=== PATIENT | male | born 1965 | race Two or more races ===

== ENCOUNTER → 2024-05-25 | Outpatient (CLI) | payer BC, SELFPAY ==
--- NOTE | 2024-05-25 09:15 | XR_ITS ---
Examination: Sinus series 4 views TECHNIQUE: Ramon Meza lateral submentovertex sinus series 4 views Exam date and time: May 25, 2024 0935 hours INDICATIONS: Sinus congestion headache sinus pressure and pain dizziness 1 year. FINDINGS: Significant opacity in the frontal ethmoid air cells as well as maxillary antra and sphenoid sinuses No fluid levels No cortical bone destruction IMPRESSION: Significant chronic pansinusitis
== END | disposition home or self-care (01) ==
PROVIDERS: PCP Nurse Practitioner Family; Referring Provider Nurse Practitioner Family; Visit Provider Nurse Practitioner Family
DX: J32.4 Chronic pansinusitis (principal)
CPT/HCPCS: 70220

== ENCOUNTER 2024-08-02 06:50 | Day surgery (SDC) | payer BC, SELFPAY ==
[2024-08-02] VITALS (9 sets, daily range): BP systolic 127–152; BP diastolic 81–104; PULSE 59–72; RESP 12–23; TEMP 36.6–36.7; O2SAT 95–99; BMI 34.6
[2024-08-02] MEDS: SODIUM CHLORIDE 0.9% 500 ML 500 ML 125 ML IV (07:54)
[2024-08-02] MEDS: fentaNYL CIT INJ 50 mCg/ML AMP 2ML (ASD USE ONLY) IV (07:57)
[2024-08-02] MEDS: MIDAZOLAM INJ 1 MG/ML VIAL 2 ML (ASD USE ONLY) 2 MG IV (07:57)
[2024-08-02] MEDS: DiphenhydrAMINE INJ 50 MG/ML VIAL 25 MG IV (07:57)
--- NOTE | 2024-08-02 08:14 | SUR.PHASEII ---
PATIENT INTO RECOVERY WITH NO ACUTE DISTRESS NOTED, V/S STABLE, NO COMPLAINTS OF PAIN OR NAUSEA AT THIS TIME, PATIENT ACTIVELY PASSING FLATUS.
--- NOTE | 2024-08-02 09:28 | SUR.PHASEII ---
0844 SPEEDY RN CALLS PATIENT'S KENNEY TO INFORM HER THAT PATIENT IS READY FOR PHYSICAL THERAPY COORDINATOR. 0850 PATIENT OUR OF THE BATHROOM AND DRESSED TO GO HOME. PATIENT DRINKING APPLEJUICE WITH NO DIFFICULTY. 0910 SPEEDY RN CALLS PATIENT'S KENNEY AGAIN TO ENSURE SHE IS EN ROUTE TO THE FACILITY AND KENNEY INFORMS HER SHE IS ON HER WAY. 0920 D/C INSTRUCTIONS GIVEN TO PATIENT'S AND DAUGHTER BY SPEEDY NELSON/CERTIFIED TOP TAPER MACHINE. 0928 PATIENT DISCHARGED HOME IN STABLE CONDITION.
== END 2024-08-02 09:28 | disposition home or self-care (01) ==
PROVIDERS: PCP Nurse Practitioner Family; Referring Provider Surgery; Visit Provider Surgery
PROC: 0DBE8ZX Excision of Large Intestine, Via Natural or Artificial Opening Endoscopic, Diagnostic (ICD-10-PCS; CPT 45380; principal; 2024-08-02 08:00)
DX: Z12.11 Encounter for screening for malignant neoplasm of colon (principal); K56.690 Other partial intestinal obstruction; K64.1 Second degree hemorrhoids; K57.30 Diverticulosis of large intestine without perforation or abscess without bleeding; D12.0 Benign neoplasm of cecum
CPT/HCPCS: 45380; A4649; J1200; J2250; J3010; J7040

== ENCOUNTER 2024-09-02 09:01 | Emergency (ER) | payer BC, SELFPAY ==
[2024-09-02 09:02] VITALS: BMI 38.9
[2024-09-02 09:31] VITALS: BP 118/77; PULSE 91; RESP 18; TEMP 37.6; O2SAT 95
--- NOTE | 2024-09-02 10:05 | XR_ITS ---
Examination: CT brain head without contrast. 2-D sagittal coronal reconstructions Date and time of exam:August 1114 hours Comparison March 11, 2005 INDICATIONS: Headaches fever beginning 3 days ago CTDI: vol (mGy):51.5 DLP: (mGycm):996 Technique: Multiple CT axial sections of the brain have been obtained, 5 mm slice thickness. Contrast has not been administered. 2-D sagittal, coronal reconstructions have been obtained Low dose protocols were performed. One or more of the following dose reduction techniques were used; automated exposure control, adjustment of the mA and/or KV according to patient size, use of iterative reconstruction technique. Findings: No significant ventricular enlargement. Intra-axial or extra-axial hemorrhage density is not seen. No mass effect or midline shift Basal cisterns are not remarkable. Fourth ventricle is midline. Cranial vault intact. Impression: Negative for acute hemorrhage, mass effect or midline shift Mild chronic ethmoid sinusitis 14 mm retention cyst in the sphenoid air cells 10 mm retention cyst right maxillary antrum
[2024-09-02] MEDS: IBUPROFEN TAB 400 MG TABLET 800 MG PO (10:09)
--- NOTE | 2024-09-02 13:39 | EDNOTE_ITS ---
ED Headache RME/HPI General Chief Complaint: Headache Stated Complaint: HEADACHE & FEVER WITH BODY ACHESX3 DAYS Time Seen by Provider: 09/02/24 09:31 Source: patient Arrival date/time: 09/02/24 09:01 This is a 58-year-old male who presents to the emergency department with complaints of frontal sinus headache for the past 1 week. He has a known history of allergic rhinitis. The patient reports associated nasal congestion and recently developed fever, which prompted today's visit. He has been taking eijz-izr-ycilrvz Tylenol without relief. Headache is described as constant pressure in the frontal region. Denies neck pain, photophobia, nausea, vomiting, or visual disturbances. Limitations: no limitations Related Data Home Medications ?Medication ?Instructions ?Recorded ?Confirmed atorvastatin 10 mg tablet 10 mg PO HS 08/02/24 5 cetirizine 10 mg tablet 10 mg PO QDAY 08/02/2408/02 lisinopril 10 mg tablet 10 mg PO QDAY 08/02/2408/02 Previous Rx's ?Medication ?Instructions ?Recorded amoxicillin 875 mg-potassium 1 tab PO BID #14 tabs clavulanate 125 mg tablet cetirizine 10 mg tablet 10 mg PO QDAY PRN allergy sy mptoms 09/02/24 #30 tabs fluticasone propionate 50 1 spray intranasal BID 7 day s #16 09/02/24 mcg/actuation nasal grams spray,suspension (Flonase Allergy Relief) pseudoephedrine HCl 30 mg tablet 30 mg PO Q6H #30 tabs 09/02/24 Allergies Allergy/AdvReac Type Severity Reaction Status Date / Time No Known Allergies AdvReac Unknown Uncoded 09/02/24 09:07 Review of Systems Review of Systems Systems Reviewed: All systems reviewed, normal except as documented Narrative Review of Systems: Gen: No fever, no chills, no weight loss EYES: No discharge, no visual changes, no pain HEENT: Positive for frontal headache and nasal congestion; denies facial swelling or ear pain PULM: No shortness of breath, no cough, no congestion CV: No chest pain, no dyspnea on exertion, no palpitations GI: No nausea, no vomiting, no diarrhea, no pain, no constipation : No frequency, no urgency,? no dysuria Musc/skel: No joint pain, no back pain Skin: No rash? Psyc: No hallucinations, no depression Heme/Lymph: No easy bleeding or bruising tendencies Neuro: No weakness, ++ headache ED Exam General Limitations: Present no limitations General appearance: Present alert and in no apparent distress Head Head exam: Present atraumatic Eye Eye exam: Present normal appearance, PERRL and EOMI ENT ENT exam: Present normal oropharynx, mucous membranes moist and other ( Frontal sinus tenderness on palpation, nasal mucosa erythematous with congestion, no purulence) Neck Neck exam: Present normal inspection, full ROM and trachea midline; Absent tenderness or meningismus Chest Chest inspection: Present normal inspection and symmetric chest wall rise Respiratory Respiratory exam: Present normal lung sounds bilaterally Cardiovascular Cardiovascular exam: Present regular rate, normal rhythm and normal heart sounds Abdominal Exam Abdominal exam: Present soft and normal bowel sounds Extremities Exam Extremities exam: Present normal inspection and full ROM Back Exam Back exam: Present normal inspection and full ROM Neurological Exam Neurological exam: Present alert, oriented X3 and CN II-XII intact Psychiatric Psychiatric exam: Present normal affect and normal mood Skin Skin exam: Present warm, dry, intact and normal color Course Quality Measures none Orders Category Date Time Status Bedside COVID-19 Antigen Test NOW Care 09/02/24 10:05 Completed Bedside Influenza A&B Antigen Test NOW Care 09/02/24 10:[address] head/brain wo con Stat Exams 09/02/24 10:05 Completed Ibuprofen Tab [Motrin Tab] Med 09/02/24 10:06 Discontinued 800 mg PO X1 ONE Vital Signs Vital signs: Vital Signs Temperature 99.6 F 09/02/24 09:31 Pulse Rate 91 09/02/24 09:31 Respiratory Rate 18 09/02/24 09:31 Blood Pressure 118/77 09/02/24 09:31 Pulse Oximetry (%) 95 09/02/24 09:31 Oxygen Delivery Method Room Air 09/02/24 09:31 Headache MDM Narrative MDM Narrative:: CT of the sinuses was obtained due to persistent headache and fever. Imaging revealed: * Mild chronic ethmoid sinusitis * 14 mm retention cyst in the sphenoid air cells * 10 mm retention cyst in the right maxillary antrum Findings consistent with chronic sinus changes and likely acute sinus infl ammation. No evidence of orbital or intracranial extension. Clinical presentation supports a diagnosis of acute sinusitis superimposed on chronic sinus changes. Antibiotic therapy initiated. No signs of meningitis or severe complications. No need for ENT referral at this time. Patient data External records reviewed:: [facility] previous records Clinical information provided by:: patient Social determinants that could affect healthcare access:: none Patient has the following chronic illnesses:: no How is presenting disease/condition affected by chronic disease/condition?: no chronic disease Evaluation data The following diagnostics were reviewed and interpreted by me:: radiology exam(s) Lab and/or radiology exams considered but not ordered:: no Interpretation Summary: CT brain head without contrast. 2-D sagittal coronal reconstructions Date and time of exam:August 1114 hours Comparison March 11, 2005 INDICATIONS: Headaches fever beginning 3 days ago CTDI: vol (mGy):51.5 DLP: (mGycm):996 Technique: Multiple CT axial sections of the brain have been obtained, 5 mm slice thickness. Contrast has not been administered. 2-D sagittal, coronal reconstructions have been obtained Low dose protocols were performed. One or more of the following dose reduction techniques were used; automated exposure control, adjustment of the mA and/or KV according to patient size, use of iterative reconstruction technique. Findings: No significant ventricular enlargement. Intra-axial or extra-axial hemorrhage density is not seen. No mass effect or midline shift Basal cisterns are not remarkable. Fourth ventricle is midline. Cranial vault intact. Impression: Negative for acute hemorrhage, mass effect or midline shift Mild chronic ethmoid sinusitis 14 mm retention cyst in the sphenoid air cells 10 mm retention cyst right maxillary antrum Medications / Prescriptions Medications or Prescriptions considered but not ordered:: Narcotics Medication administrations:: Medication Administration History Discontinued Medications Ibuprofen (Ibuprofen Tab 400 Mg Tablet) 800 mg PO X1 ONE Stop: 09/02/24 10:07 Last Admin: 09/02/24 10:09 Dose: 800 mg Documented By: VG All medications administered and effective Consultations Consultation(s) initiated? (list below): No Diagnosis Differential diagnosis headache: migraine, tension headache, subarachnoid hemorrhage, headache and sinusitis Most likely diagnosis given after review of the tests above:: Sinusitis with mucous retention cyst Admission Indicated Admission indicated?: not indicated Explain why admission is indicated or not indicated:: Does not meet admission criteria Admission Request Was there a request for admission?: No Disposition Plan Disposition Plan: Discharge Discharge Attestation Discharge Attestation: The patient and all family members were given an opportunity to ask questions and understood the discharge instructions. Discharge instructions specifically effects, indications for sooner follow up or return to the emergency department, and the expected course of current diagnosis. Patient condition: Stable Discharge Plan Plan Patient Disposition: HOME (Self Care) Patient condition on transfer: Stable Prescriptions/Referrals Prescriptions/Med Rec: New amoxicillin-pot clavulanate 875-125 mg tablet 1 tab PO BID Qty: 14 0RF cetirizine 10 mg tablet 10 mg PO QDAY PRN (Reason: allergy symptoms) Qty: 30 0RF pseudoephedrine HCl 30 mg tablet 30 mg PO Q6H Qty: 30 0RF fluticasone propionate [Flonase Allergy Relief] 50 mcg/actuation spray,suspension 1 spray intranasal BID 7 Days Qty: 16 0RF Rx Instructions: administer into each nostril No Action cetirizine 10 mg tablet 10 mg PO QDAY Patient Comments: TAKE 1 TABLET BY MOUTH ONCE DAILY NEEDED atorvastatin 10 mg tablet 10 mg PO HS lisinopril 10 mg tablet 10 mg PO QDAY Referrals: Diogo Jacobo MD [Primary Care Provider] - In 1 week Problem List Clinical Impression: Sinusitis, Mucous retention cyst of maxillary sinus Patient/Caregiver Discharge Instructions Education Materials: Treating Chronic Sinusitis Additional Instructions: Sinusitis Care * Rest and stay well-hydrated. * Use saline nasal sprays or rinses to help clear your sinuses. * Take tgry-ram-cwdqxdw pain relievers (like acetaminophen or ibuprofen) as needed for discomfort. * If prescribed, take antibiotics exactly as directed and complete the full course. * Avoid smoking and exposure to secondhand smoke. Mucous Retention Cyst * This is a harmless, fluid-filled sac in your sinus, often found incidentally. * No treatment is usually needed unless it causes symptoms. * Do not attempt to pop or drain the cyst yourself. When to Seek Medical Attention * Fever over 101?F (38.3?C) that doesn't improve. * Worsening facial pain or swelling. * Vision changes or severe headache. * Persistent symptoms beyond 10 days or symptoms that worsen after initial improvement. Follow-Up * Schedule a follow-up with your primary care provider or an ENT specialist if symptoms persist or worsen. Print Language: Armenian Stand Alone Forms: [place] Award Info., Work/School Release, Patient Portal Info Letter PA/EVELYN Supervising Physician PA/OFF PREMISE SERVICE REPRESENTATIVE Supervising Physician: dr anderson
== END 2024-09-02 15:25 | disposition home or self-care (01) ==
PROVIDERS: Emergency Provider Emergency Medicine; PCP Obstetrics & Gynecology
DX: J32.2 Chronic ethmoidal sinusitis (principal); J34.1 Cyst and mucocele of nose and nasal sinus
CPT/HCPCS: 70450; 87400; 87811; 99284; A9270

== ENCOUNTER → 2024-09-06 | Outpatient (CLI) | payer BC, SELFPAY ==
[2024-09-06 14:49] LABS: Blood Urea Nitrogen 13 mg/dL (9-23); Creatinine (Component) 1.2 mg/dL (0.6-1.3); eGFR > 60 See Note
== END | disposition home or self-care (01) ==
PROVIDERS: Referring Provider Surgery; Visit Provider Surgery
DX: D49.0 Neoplasm of unspecified behavior of digestive system (principal)
CPT/HCPCS: 36415; 82565; 84520

== ENCOUNTER 2024-10-22 09:15 | Inpatient (IN) | payer BC, SELFPAY ==
[2024-10-20 11:35] VITALS: BMI 39.1
--- NOTE | 2024-10-20 13:54 | EKG_ITS ---
[facility] Test Date: 2024-10-20 Pat Name: AJIT PETERSEN Department: Room: - Gender: Male Fire Protection Specialist: MAITE : [id number] Requested By: Alphonso Elena Order Number: [id number] Reading MD: Alphonso Elena Measurements Intervals Bennett Rate: 60 P: 28 AK: 132 QRS: 32 QRSD: 85 T: 30 QT: 399 QTc: 402 Interpretive Statements SINUS RHYTHM LOW QRS VOLTAGE IN PRECORDIAL LEADS [QRS DEFLECTION < 1.0 mV IN CHEST LEADS] PATTERN CONSISTENT WITH PULMONARY DISEASE No previous ECG available for comparison /store/S0/[id number].pdf
[2024-10-20 14:41] LABS: Basophils % (Auto) 0 % (0-2.5); Eosinophils # (Auto) 0.6 Thou/mm3 (0.0-0.5); Eosinophils % (Auto) 7 % (0-10); Hematocrit 39.3 % (41.0-53.0); Hemoglobin 14.1 g/dL (13.5-16.0); Immature Granulocytes % (Auto) 0 % (0-0); Immature Granulocytes Auto 0.02 Thou/mm3 (0.00-0.00); Lymphocytes # (Auto) 3.5 Thou/mm3 (1.0-4.8); Lymphocytes % (Auto) 40 % (10-50); Mean Corpuscular HGB Conc 35.9 g/dl (31.0-37.0); Mean Corpuscular Hemoglobin 31.3 pg (25.0-35.0); Mean Corpuscular Volume 87 fL (80-100); Monocytes # (Auto) 0.6 Thou/mm3 (0.0-0.8); Monocytes % (Auto) 7 % (0-12); Neutrophils # (Auto) 3.9 Thou/mm3 (1.8-7.7); Neutrophils % (Auto) 46 % (37-80); Nucleated Red Blood Cell % 0 /100 WBC (0); Platelet Count 296 Thou/mm3 (140-440); RDW Standard Deviation 42.6 fL (35.1-43.9); Red Blood Count 4.51 Miln/mm3 (4.50-5.90); White Blood Count 8.6 Thou/mm3 (3.8-10.6)
[2024-10-20 14:53] LABS: Alanine Aminotransferase 26 U/L (10-49); Albumin, Serum 4.4 gm/dL (3.5-5.0); Albumin/Globulin Ratio 1.9 (1.2-2.2); Alkaline Phosphatase 59 U/L (46-116); Anion Gap 11 (7-16); Aspartate Amino Transferase 21 U/L (0-34); BUN/Creatinine Ratio 14 Ratio (12-20); Bilirubin,Total 0.4 mg/dL (0.3-1.2); Blood Urea Nitrogen 14 mg/dL (9-23); Calcium 8.7 mg/dL (8.3-10.6); Calcium (Corrected) 8.7 mg/dL (8.5-10.1); Carbon Dioxide 27.8 mMol/L (20.0-31.0); Chloride 104 mMol/L (98-107); Estimated Creatinine Clearance 85.6 mL/min (>60); Globulin 2.3 gm/dL (2.3-3.5); Glucose 107 mg/dL (74-106); Osmolality,Calculated 285 (275-295); Sodium 143 mMol/L (136-145); Total Protein 6.7 gm/dL (5.7-8.2); eGFR > 60 See Note
[2024-10-22] VITALS (10 sets, daily range): BP systolic 124–139; BP diastolic 73–85; PULSE 60–87; RESP 12–18; TEMP 36.3–36.9; O2SAT 93–99; BMI 37.2; BMI 39.3
[2024-10-22] MEDS: RINGERS LACTATED 1000 ML 1,000 ML 20 ML IV (10:33)
--- NOTE | 2024-10-22 11:00 | CHAP ---
Patient expressed gratitude for prayer before his procedure.
--- NOTE | 2024-10-22 13:15 | SUR.OPER ---
(Brooke) updated on case status/progress via phone by Morgan Jackson RN at approx. 1315.
--- NOTE | 2024-10-22 14:28 | PD.SUROPNT ---
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 No evidence of peritoneal or omental nodules. Anterior surface of the liver was smooth without any lesions or nodules. Anesthesia GETA and local Pathology / specimen Other (Right colon) Estimated Blood Loss 50 Condition Stable Disposition PACU Surgeon Alphonso Elena MD Surgical Staff Operation Date: 10/22/24 11:45 Case Staff Anesthesiologist: Moreno Camacho RN First Assistant: Zheng Rosario
--- NOTE | 2024-10-22 14:43 | SUR.PHASEI ---
1443: Pt. arrived with oral airway in place, vitals stable, breathing unlabored, no signs of distress, dressing to ABD CDI, no active bleed noted, report received from MD Camacho and Morgan RN.
[2024-10-22] MEDS: KCL 20 mEq/L in D5-1/2NS 20 MEQ/1,000 ML BAG 50 MEQ IV (15:03)
[2024-10-22] MEDS: ONDANSETRON INJ 2 MG/ML INJ 2 ML 4 MG IVP (15:32)
--- NOTE | 2024-10-22 16:00 | SUR.PHASEI ---
1600: Pt. AAOx4, vitals stable, breathing unlabored, no complaint of pain, complaint of nausea, zofran administered, dressing to ABD CDI, valentin catheter in place, no active bleed noted, gave report to floor nurse prior to transfer to room 383. Family made aware of transfer to room. Pt. transferred with all personal belongings.
[2024-10-22] MEDS: ACETAMINOPHEN IVPB 1,000 MG/100 ML VIAL 250 MG IV ×2 (17:50→22:18)
--- NOTE | 2024-10-22 18:16 | PC.NURSE ---
pt stated he is not allergic to tylenol, he is allergic to hydrocodone from vicodin
[2024-10-22] MEDS: CEFOXITIN 2 GM in SODIUM CHLORIDE 0.9% (Popper) 50 ML IV ×2 (18:30→23:20)
[2024-10-22] MEDS: DOCUSATE SOD 100 MG CAPSULE PO (20:46)
[2024-10-22] MEDS: ASCORBIC ACID 250 MG TABLET 500 MG PO (20:47)
[2024-10-22] MEDS: ATORVASTATIN CALCIUM 10 MG TABLET PO (21:00)
[2024-10-23] VITALS (9 sets, daily range): BP systolic 113–136; BP diastolic 63–84; PULSE 60–81; RESP 18; TEMP 36.2–36.4; O2SAT 93–100
[2024-10-23] MEDS: ACETAMINOPHEN IVPB 1,000 MG/100 ML VIAL 250 MG IV ×2 (04:27→11:03)
[2024-10-23] MEDS: CEFOXITIN 2 GM in SODIUM CHLORIDE 0.9% (Popper) 50 ML IV ×2 (05:01→11:44)
[2024-10-23] MEDS: HYDROmorphone INJ 2 MG/ML VIAL 1 MG IVP ×4 (07:20→19:16)
[2024-10-23] MEDS: DOCUSATE SOD 100 MG CAPSULE PO ×2 (09:16→20:26)
[2024-10-23] MEDS: ASCORBIC ACID 250 MG TABLET 500 MG PO ×2 (09:16→20:26)
[2024-10-23] MEDS: ZINC SULFATE 220 MG CAPSULE PO (09:16)
[2024-10-23] MEDS: Lisinopril 2.5 MG TABLET 10 MG PO (09:20)
--- NOTE | 2024-10-23 11:43 | PC.SS ---
Edgar Nelson is a 58-year-old male admitted to [facility] for LAP RT Colectomy. SS conducted bedside contact with the patient to complete initial assessment and to discuss discharge planning. Role and reason explained. Patient confirmed demographic information. Patient identifies his , Brooke Mcelroy [phone] as his surrogate decision maker. Pt states he is able to complete all ADL?s independent. Pt does not possesses any DME. Pts PCP is [facility], unsure of new dr name. Pharmacy of choice is [facility]. Discharge options discussed and the pt wishes to return home.? Pt fam will provide transport at the time of DC. No further intervention required at this time, social media senior associate would be available to address any further concerns. DC Plan: Home Contact: Brooke Mcelroy [phone] Address: Confirmed on face sheet PCP: [facility]
[2024-10-23] MEDS: KCL 20 mEq/L in D5-1/2NS 20 MEQ/1,000 ML BAG 50 MEQ IV (11:44)
--- NOTE | 2024-10-23 13:09 | PC.NURSE ---
valentin catheter removed, catheter intact, pt tolerated well.
--- NOTE | 2024-10-23 14:25 | PD.SURPROG ---
Documentation for date of: 10/23/24 Subjective Subjective Narrative: Patient is seen and examined. His pain is improving. He is tolerating clear liquids without nausea or vomiting. Exam Vital Signs Temp Pulse Resp BP Pulse Ox O2 Del Method O2 Flow Rate 97.6 F 69 18 132/75 H 98 Nasal Cannula 2 10/23/24 11:48 10/23/24 11:48 10/23/24 11:48 10/23/24 11:48 10/23/24 11:48 10/23/24 11:48 10/23/24 11:48 Constitutional Constitutional: no acute distress Routine Abdominal Exam Comments: Abdomen is soft and mildly distended. He has active bowel sounds. Incisions with dressing clean, dry and intact Assessment & Plan Assessment Additional comments: Postop day #1 status post laparoscopic right colectomy Plan DC Mendoza catheter. DC IV fluids. Antibiotic will be discontinued later today. Increase ambulation and use incentive spirometer Procedures Procedures Laparoscopic assisted right colectomy
--- NOTE | 2024-10-23 16:44 | PC.NURSE ---
drain 1300 ml urine from valentin catheter
[2024-10-23] MEDS: lorataDINE 10 MG TABLET PO (19:17)
[2024-10-23] MEDS: ATORVASTATIN CALCIUM 10 MG TABLET PO (20:26)
[2024-10-24] VITALS (10 sets, daily range): BP systolic 120–149; BP diastolic 69–98; PULSE 60–104; RESP 15–19; TEMP 36.1–36.8; O2SAT 94–97
[2024-10-24] MEDS: HYDROmorphone INJ 2 MG/ML VIAL 1 MG IVP ×5 (00:11→16:29)
[2024-10-24 05:57] LABS: Basophils % (Auto) 0 % (0-2.5); Eosinophils # (Auto) 0.2 Thou/mm3 (0.0-0.5); Eosinophils % (Auto) 1 % (0-10); Hematocrit 37.5 % (41.0-53.0); Hemoglobin 12.9 g/dL (13.5-16.0); Immature Granulocytes % (Auto) 0 % (0-0); Immature Granulocytes Auto 0.05 Thou/mm3 (0.00-0.00); Lymphocytes # (Auto) 3.5 Thou/mm3 (1.0-4.8); Lymphocytes % (Auto) 25 % (10-50); Mean Corpuscular HGB Conc 34.4 g/dl (31.0-37.0); Mean Corpuscular Hemoglobin 31.1 pg (25.0-35.0); Mean Corpuscular Volume 90 fL (80-100); Monocytes # (Auto) 1.1 Thou/mm3 (0.0-0.8); Monocytes % (Auto) 8 % (0-12); Neutrophils % (Auto) 65 % (37-80); Nucleated Red Blood Cell % 0 /100 WBC (0); Platelet Count 291 Thou/mm3 (140-440); RDW Standard Deviation 45.1 fL (35.1-43.9); Red Blood Count 4.15 Miln/mm3 (4.50-5.90); White Blood Count 13.8 Thou/mm3 (3.8-10.6)
[2024-10-24 07:15] LABS: Albumin, Serum 4.2 gm/dL (3.5-5.0); Anion Gap 11 (7-16); BUN/Creatinine Ratio 9 Ratio (12-20); Blood Urea Nitrogen 8 mg/dL (9-23); Calcium 9.3 mg/dL (8.3-10.6); Calcium (Corrected) 9.3 mg/dL (8.5-10.1); Carbon Dioxide 25.8 mMol/L (20.0-31.0); Chloride 104 mMol/L (98-107); Creatinine (Component) 0.9 mg/dL (0.6-1.3); Estimated Creatinine Clearance 98.7 mL/min (>60); Glucose 99 mg/dL (74-106); Magnesium 2.1 mg/dL (1.6-2.6); Osmolality,Calculated 279 (275-295); Phosphorous 3.3 mg/dL (2.4-5.1); Sodium 141 mMol/L (136-145); eGFR > 60 See Note
[2024-10-24] MEDS: ZINC SULFATE 220 MG CAPSULE PO (08:50)
[2024-10-24] MEDS: DOCUSATE SOD 100 MG CAPSULE PO ×2 (08:50→20:24)
[2024-10-24] MEDS: Lisinopril 2.5 MG TABLET 10 MG PO (08:50)
[2024-10-24] MEDS: ASCORBIC ACID 250 MG TABLET 500 MG PO ×2 (08:50→20:24)
--- NOTE | 2024-10-24 09:30 | PD.SURPROG ---
Documentation for date of: 10/24/24 Subjective Subjective Narrative: Patient is seen and examined. His pain is improving. He is tolerating liquids without nausea or vomiting. He started passing flatus, no bowel movement yet Exam Vital Signs Temp Pulse Resp BP Pulse Ox O2 Del Method O2 Flow Rate 97.0 F 73 16 124/78 95 Room Air 1.5 10/24/24 07:50 10/24/24 08:50 10/24/24 07:50 10/24/24 08:50 10/24/24 07:50 10/24/24 04:00 10/24/24 04:50 Constitutional Constitutional: no acute distress Routine Abdominal Exam Comments: Abdomen is soft and mildly distended. He has active bowel sounds. Incisions are clean, dry and intact Assessment & Plan Assessment Additional comments: Postop day #3 status post laparoscopic right colectomy Plan Continue full liquids. Continue to ambulate and use incentive spirometer. Awaiting for full return of GI function Procedures Procedures Laparoscopic assisted right colectomy
[2024-10-24] MEDS: ONDANSETRON INJ 2 MG/ML INJ 2 ML 4 MG IVP (16:46)
--- NOTE | 2024-10-24 18:32 | PC.NURSE ---
Dr. Elena called at 1730, pt c/o vomiting x1, increase pain, abd distension, pt passing gas, had 2 bowel movements. Order received, read back, and carried out.
[2024-10-24] MEDS: ACETAMINOPHEN IVPB 1,000 MG/100 ML VIAL 250 MG IV (20:23)
[2024-10-24] MEDS: ATORVASTATIN CALCIUM 10 MG TABLET PO (20:24)
[2024-10-25] VITALS (7 sets, daily range): BP systolic 109–131; BP diastolic 69–82; PULSE 64–77; RESP 16–18; TEMP 36.4–36.8; O2SAT 93–97; BMI 39.1
[2024-10-25] MEDS: HYDROmorphone INJ 2 MG/ML VIAL 1 MG IVP (03:43)
[2024-10-25] MEDS: ACETAMINOPHEN IVPB 1,000 MG/100 ML VIAL 250 MG IV ×2 (05:17→12:32)
--- NOTE | 2024-10-25 07:49 | PD.SURPROG ---
Documentation for date of: 10/25/24 Subjective Subjective Narrative: Patient is seen and examined. His pain is improving. He had an episode of emesis after consuming milk last night. He has had multiple bowel movements Exam Vital Signs Temp Pulse Resp BP Pulse Ox O2 Del Method O2 Flow Rate 98.3 F 64 18 109/69 95 Room Air 1.5 10/25/24 04:00 10/25/24 04:00 10/25/24 04:00 10/25/24 04:00 10/25/24 04:00 10/25/24 04:00 10/24/24 04:50 Constitutional Constitutional: no acute distress Routine Abdominal Exam Comments: Abdomen is soft and very minimally distended. Incisions are clean, dry and intact and bowel sounds are present Assessment & Plan Assessment Additional comments: Postop day #3 status post laparoscopic right colectomy Plan Advance to soft diet. If tolerating diet may discharge home after lunch Procedures Procedures Laparoscopic assisted right colectomy
[2024-10-25] MEDS: Lisinopril 2.5 MG TABLET 10 MG PO (08:09)
[2024-10-25] MEDS: DOCUSATE SOD 100 MG CAPSULE PO (08:09)
[2024-10-25] MEDS: ASCORBIC ACID 250 MG TABLET 500 MG PO (08:09)
[2024-10-25] MEDS: ZINC SULFATE 220 MG CAPSULE PO (08:09)
--- NOTE | 2024-10-25 10:18 | PC.SS ---
Follow up note: If pt tolerates soft foods for lunch then he will d/c home. Pt is on IV meds.
--- NOTE | 2024-10-25 17:58 | ESDS_ITS ---
Planned Discharge Date 10/25/24 DS: Providers Provider Date of admission: 10/22/24 09:15 Primary care physician: Physician No Primary/Family Admitting Provider: Alphonso Elena MD Attending Provider on Admission: Alphonso Elena MD Attending Provider on DC: Alphonso Elena MD Discharging Provider: Alphonso Elena MD Diagnosis Problem List Completed Was Problem List Reviewed/Reconciled?: Yes Hospital Course Brief History: 58-year-old male was noted to have a large and fungating mass in the cecum that was not amenable to endoscopic removal. Biopsy revealed tubulovillous adenoma. Patient is scheduled for laparoscopic right colectomy to rule out malignancy. Patient underwent laparoscopic assisted right colectomy. Postoperatively his Mendoza catheter was removed on postop day #1, he was able to void without difficulty. He was started on clear liquids and his diet was gradually advanced. He was eating and tolerating diet well without nausea or vomiting. He started passing gas and had multiple bowel movements. His incisions are sam an, dry and intact. He has remained hemodynamically stable and being discharged home in stable condition. Status at Discharge Functional status at discharge: independent ambulation Overall status at discharge: patient is progressing back to baseline Exam Vital Signs Temp Pulse Resp BP Pulse Ox O2 Del Method O2 Flow Rate 97.5 F 70 18 121/81 94 L Room Air 1.5 10/25/24 16:00 10/25/24 16:00 10/25/24 16:00 10/25/24 16:00 10/25/24 16:00 10/25/24 04:00 10/24/24 04:50 Constitutional Constitutional: no acute distress Routine Abdominal Exam Abdominal: Present soft, normoactive bowel sounds and tenderness (mild adam- incisional tenderness. Incisions are clean, dry and intact); Absent distended Discharge Plan Plan Patient Disposition: HOME (Self Care) Care Plan Goals: Puede ducharse. Evite levantar objetos, hacer esfuerzos, jalarlos o empujarlos nicole 6 semanas. Puede jose laxantes de venta bladimir si no tiene evacuaciones intestinales en 2 d?as. Use myriam faja abdominal en todo momento. Rosa Maria myriam amyra de seguimiento con el Dr. Elena en 2 semanas. Llame al [phone] para programar myriam mayra. May shower. Avoid lifting, straining, pulling or pushing for 6 weeks. May take over the counter laxatives if no bowel movements in 2 days. Wear abdominal binder at all times. Follow up with Dr. Elena in 2 weeks, please call [phone] for an appointment. Prescriptions/Referrals Prescriptions/Med Rec: New ascorbic acid (vitamin C) [Vitamin C] 250 mg Tablet 500 mg PO BID Qty: 60 0RF docusate sodium 100 mg Capsule 100 mg PO BID Qty: 40 0RF zinc sulfate 50 mg zinc (220 mg) Capsule 220 mg PO QDAY Qty: 30 0RF hydromorphone [Dilaudid] 2 mg tablet 2 mg PO Q8H MDD 3 PRN (Reason: pain) Qty: 20 0RF Continued atorvastatin 10 mg tablet 10 mg PO HS lisinopril 10 mg tablet 10 mg PO QDAY cetirizine 10 mg tablet 10 mg PO QDAY PRN (Reason: allergy symptoms) Qty: 30 0RF Referrals: No Primary/Family,Physician [Primary Care Provider] - Patient/Caregiver Discharge Instructions Discharge Activity: activity as tolerated Education Materials: Types of Colon Resections, Bowel Surg Recovery, Having Open Colon Surgery, Preventing Surgical Site Infections Print Language: Latvian Activity Restrictions/Additional Instructions: May shower. Avoid lifting, straining, pulling or pushing for 6 weeks. May take over the counter laxatives if no bowel movements in 2 days. Wear abdominal binder at all times. Follow up with Dr. Elena in 2 weeks, please call [phone] for an appointment. Stand Alone Forms: [place] Award Info., Patient Portal Info Letter Discharge Order Discharge Orders: Discharge (Routine); Ordered 10/25/24 Ordered By: Alphonso Elena Procedures Procedure Date 10/22/24 Procedures Laparoscopic assisted right colectomy
== END 2024-10-25 18:47 | disposition home or self-care (01) | DRG 331 ==
LOC: S2W1 09:22 → S3SX 16:10
PROVIDERS: Anesthesiology; Admitting Provider Surgery; Visit Provider Surgery
PROC: 0DTF0ZZ Resection of Right Large Intestine, Open Approach (ICD-10-PCS; CPT 49320; 2024-10-22 11:30)
DX: D12.6 Benign neoplasm of colon, unspecified (principal)
CPT/HCPCS: 36415; 80053; 80069; 83735; 85025; 93005; 94664; A4217; A4649; J0131; J0694; J1100; J1171; J1885; J2250; J2371; J2405; J2704; J2765; J3010; J3480; J3490; J7050; J7120; A9270; J1596